=== PATIENT | male | born 1940 | race Caucasian/White ===

== ENCOUNTER 2023-12-30 12:03 | Emergency (ER) | payer OTHER ==
[2023-12-30 12:12] VITALS: BP 137/62; PULSE 68; RESP 18; TEMP 97.8; BMI 25.4
[2023-12-30] MEDS ORDERED: diphenhydrAMINE HCL 25 MG CAPSULE (FP) PO ONE (12:54)
[2023-12-30] MEDS: diphenhydrAMINE HCL 25 MG CAPSULE (FP) PO ONE (12:56)
== END 2023-12-30 13:43 | disposition home or self-care (01) ==
LOC: JERFT 12:03
DX: R21 Rash and other nonspecific skin eruption (principal); L29.9 Pruritus, unspecified
CPT/HCPCS: 99283-25